=== PATIENT | female | born 1990 | race Caucasian/White ===

== ENCOUNTER 2018-02-18 10:27 | Day surgery (SDC) | payer OTHER ==
--- NOTE | 2018-02-18 08:38 | Discharge Summary ---
Short Stay Discharge Plan Activity: no restrictions Weight Bearing Status: Full Weight Bearing Diet: regular Wound: remove dressing (72hrs) Follow up with: JOSSELIN SALEH JR, MD [Staff Physician] - 7 Days MARTIN HODGES MD [Primary Care Provider] - 7 Days
--- NOTE | 2018-02-18 08:40 | Short Stay Summary ---
Short Stay Documentation Date of service: 02/18/18 - Allergies and Medications Current Medications: Allergies No Known Allergies Allergy (Verified 02/14/18 13:36) Home Medications Medication Instructions Recorded Confirmed Last Taken Type No Known Home Medications [No 02/14/18 02/14/18 Unknown History Reported Home Medications] - Brief post op/procedure progress note Date of procedure: 02/18/18 Pre-op diagnosis: Macromastia Post-op diagnosis: same Procedure: Kristofer. Breast Reduction Anesthesia: GETA Surgeon: JOSSELIN SALEH JR Estimated blood loss: 50-100ml Specimen disposition: to lab Condition: stable - Disposition Condition at discharge: Good Disposition: DC-01 TO HOME OR SELFCARE Short Stay Discharge Plan Follow up with: JOSSELIN SALEH JR, MD [Staff Physician] - 7 Days MARTIN HODGES MD [Primary Care Provider] - 7 Days
[2018-02-18] MEDS ORDERED: ANCEF/STERILE WATER 2 GM/20 ML IV NR (11:00)
[2018-02-18 11:12] LABS: Basophils # (Auto) 0.1 K/mm3 (0.0-0.1); Basophils % (Auto) 1.1 % (0.0-1.8); Eosinophils # (Auto) 0.2 K/mm3 (0.0-0.4); Eosinophils % (Auto) 2.2 % (0.0-4.3); Hematocrit 38.6 % (30.3-42.9); Hemoglobin 12.3 gm/dl (10.1-14.3); Lymphocytes % (Auto) 34.7 % (13.4-35.0); Mean Corpuscular HGB Conc 32 % (30-34); Mean Corpuscular Hemoglobin 25 pg (28-32); Mean Corpuscular Volume 79 fl (79-97); Monocytes # (Auto) 0.5 K/mm3 (0.0-0.8); Monocytes % (Auto) 5.8 % (0.0-7.3); Platelet Count 306 K/mm3 (140-440); Red Blood Count 4.88 M/mm3 (3.65-5.03)
[2018-02-18] MEDS ORDERED: ZOFRAN IV PRN (11:42)
[2018-02-18] MEDS ORDERED: DEMEROL IV PRN (11:42)
--- NOTE | 2018-02-18 11:44 | Anesthesia Consultation ---
Anesthesia Consult and Med Hx - Airway Anesthetic Teeth Evaluation: Good ROM Head & Neck: Adequate Mental/Hyoid Distance: Adequate Mallampati Class: Class II Intubation Access Assessment: Probably Good - Pulmonary Exam CTA: Yes - Cardiac Exam Cardiac Exam: RRR - Pre-Operative Health Status ASA Pre-Surgery Classification: ASA2 Proposed Anesthetic Plan: General - Pulmonary Hx Asthma: Yes (RESCUE INHALER) - Central Nervous System Hx Back Pain: Yes Hx Psychiatric Problems: No - Other Systems Hx Alcohol Use: No Hx Substance Use: No Hx Cancer: No
--- NOTE | 2018-02-18 11:44 | Anesthesia Day of Surgery ---
Anesthesia Day of Surgery - Day of Surgery Patient Examined: Yes Patient H&P Reviewed: Yes Patient is NPO: Yes
[2018-02-18] MEDS ORDERED: LACTATED RINGERS 1,000 ML IV SCH ×3 (12:00)
[2018-02-18] MEDS ORDERED: VERSED IV NR ×2 (12:00)
[2018-02-18] MEDS ORDERED: XYLOCAINE MPF 2% ONE (12:24)
[2018-02-18] MEDS ORDERED: DIPRIVAN 10 MG/ML IV ONE (12:24)
[2018-02-18] MEDS ORDERED: NACL 0.9% IR ONE (12:29)
[2018-02-18] MEDS ORDERED: ZOFRAN ONE (12:46)
[2018-02-18] MEDS ORDERED: SUBLIMAZE ONE (12:55)
[2018-02-18] MEDS ORDERED: DECADRON ONE (12:55)
[2018-02-18] MEDS ORDERED: DILAUDID ONE ×2 (13:06→13:50)
[2018-02-18] MEDS ORDERED: NACL 0.9% 1000 ML 1,000 ML ONE (14:15)
[2018-02-18] MEDS ORDERED: TORADOL ONE (15:02)
[2018-02-18] MEDS ORDERED: TORADOL IV ONE (15:02)
[2018-02-18] MEDS: DILAUDID IV PRN ×2 (15:05→15:20)
--- NOTE | 2018-02-18 17:39 | Operative Report ---
PREOPERATIVE DIAGNOSIS: Macromastia. POSTOPERATIVE DIAGNOSIS: Macromastia. PROCEDURE: Bilateral reduction mammoplasty with nipple areolar complex amputation. SURGEON: Edinson Parisi M.D. CISTERN ROOM WORKING SUPERVISOR: Dario Block CSA FINDINGS: Right breast 1880 grams ,left breast 1640 grams. DESCRIPTION OF PROCEDURE: The patient was brought to the operating room and placed on table in supine position. Following administration of general anesthesia, bilateral breasts were prepped with Betadine solution, draped in usual sterile manner. A #10 blade scalpel was used to make a circumareolar skin incision followed by de-epithelization of inferior dermal pedicle. Modified Ceron pattern skin markings were incised with scalpel, deepened through subcutaneous fat and breast tissue using electrocautery. Skin flaps were raised in standard manner as was fashioning of an inferior central mound pedicle. Breast tissue was resected inclusive of bilateral nipple areolar complexes bilaterally due to the excessive inframammary fold to nipple distance. Hemostasis controlled using electrocautery. Closure was performed over 10 mm SAVANNAH drains using interrupted and running subcuticular 2-0 Monocryl sutures. Mastisol, Steri-Strips, and sterile dressings applied. The patient tolerated procedure well and returned to recovery room in stable condition. JOB# [id number] FTW/NTS
[2018-02-18 20:32] VITALS: BP 110/68
== END 2018-02-18 19:15 | disposition home or self-care (01) ==
LOC: OR 10:27
PROVIDERS: ATTEND Plastic Surgery
DX: N62 Hypertrophy of breast (principal); J45.909 Unspecified asthma, uncomplicated
CPT/HCPCS: 19318; 36415; 81025; 85025; 88305; J0690; J1100; J1170; J1885; J2250; J2405; J2704; J3010; J7030; J7120

== ENCOUNTER 2018-02-21 17:45 | Emergency (ER) | payer OTHER ==
[2018-02-21] MEDS ORDERED: PERCOCET 5/325 PO ONE (19:07)
[2018-02-21 19:29] LABS: Basophils # (Auto) 0.1 K/mm3 (0.0-0.1); Basophils % (Auto) 1.1 % (0.0-1.8); Eosinophils # (Auto) 0.2 K/mm3 (0.0-0.4); Eosinophils % (Auto) 1.9 % (0.0-4.3); Hematocrit 34.6 % (30.3-42.9); Hemoglobin 11.1 gm/dl (10.1-14.3); Lymphocytes # (Auto) 4.4 K/mm3 (1.2-5.4); Lymphocytes % (Auto) 36.8 % (13.4-35.0); Mean Corpuscular HGB Conc 32 % (30-34); Mean Corpuscular Hemoglobin 26 pg (28-32); Mean Corpuscular Volume 79 fl (79-97); Monocytes # (Auto) 0.9 K/mm3 (0.0-0.8); Monocytes % (Auto) 7.6 % (0.0-7.3); Platelet Count 343 K/mm3 (140-440); Red Blood Count 4.36 M/mm3 (3.65-5.03); Red Cell Distribution Width 14.8 % (13.2-15.2)
[2018-02-21 19:38] LABS: BUN/Creatinine Ratio 11; Blood Urea Nitrogen 9 mg/dL (7-17); Calcium 8.6 mg/dL (8.4-10.2); Hemolysis Index 7
[2018-02-21 20:50] VITALS: BP 122/70
--- NOTE | 2018-02-21 21:30 | Emergency Department Report ---
- General Chief Complaint: Wound/Laceration Stated Complaint: LEFT SWELLING PAIN POST BREAST REDUCTION Time Seen by Provider: 02/21/18 20:46 Source: patient Mode of arrival: Ambulatory Limitations: No Limitations - History of Present Illness Initial Comments: pt. is here complaining of pain pulling on both breast and chest wall worse on the left. she also noticed some discharge from the incision site. she had a breast reduction done on sunday - 4 days ago. -: Gradual Location: chest Place: home Associated Symptoms: pain - Related Data Home Medications Medication Instructions Recorded Confirmed Last Taken No Known Home Medications [No 02/14/18 02/14/18 Unknown Reported Home Medications] Allergies Allergy/AdvReac Type Severity Reaction Status Date / Time No Known Allergies Allergy Verified 02/14/18 13:36 ED Review of Systems ROS: Stated complaint: LEFT SWELLING PAIN POST BREAST REDUCTION Other details as noted in HPI Comment: All other systems reviewed and negative ED Past Medical Hx - Past Medical History Hx Asthma: Yes (RESCUE INHALER) Hx HIV: No - Surgical History Additional Surgical History: breast reduction 02/18/2018 - Social History Smoking Status: Never Smoker Substance Use Type: None - Medications Home Medications: Home Medications Medication Instructions Recorded Confirmed Last Taken Type No Known Home Medications [No 02/14/18 02/14/18 Unknown History Reported Home Medications] ED Physical Exam - General Limitations: No Limitations General appearance: alert, in no apparent distress - Head Head exam: Present: atraumatic, normocephalic - Eye Eye exam: Present: normal appearance. Absent: PERRL - ENT ENT exam: Present: normal exam, mucous membranes moist - Neck Neck exam: Present: normal inspection - Respiratory Respiratory exam: Present: normal lung sounds bilaterally, other (sterile strips covering incision site on the inferior area of the breast. no discharge from the steri-strips). Absent: respiratory distress - Cardiovascular Cardiovascular Exam: Present: regular rate, normal rhythm. Absent: systolic murmur, diastolic murmur, rubs, gallop - GI/Abdominal GI/Abdominal exam: Present: soft, normal bowel sounds. Absent: tenderness - Extremities Exam Extremities exam: Present: normal inspection, full ROM - Back Exam Back exam: Present: normal inspection, full ROM - Neurological Exam Neurological exam: Present: alert, oriented X3 - Psychiatric Psychiatric exam: Present: normal affect, normal mood - Skin Skin exam: Present: warm, dry, intact, normal color. Absent: rash ED Course Vital Signs 02/21/18 02/21/18 02/21/18 17:54 19:12 20:49 Temperature 98.5 F 98.1 F Pulse Rate 80 64 Respiratory 18 18 18 Rate Blood Pressure 123/78 Blood Pressure 122/70 [Left] O2 Sat by Pulse 96 97 Oximetry 02/21/18 20:50 Temperature Pulse Rate Respiratory 18 Rate Blood Pressure Blood Pressure [Left] O2 Sat by Pulse Oximetry ED Medical Decision Making - Lab Data Result diagrams: 02/21/18 19:11 02/21/18 19:11 - Radiology Data Radiology results: report reviewed Critical care attestation.: If time is entered above; I have spent that time in minutes in the direct care of this critically ill patient, excluding procedure time. ED Disposition Clinical Impression: Post-op pain Disposition: DC-01 TO HOME OR SELFCARE Is pt being admited?: No Does the pt Need Aspirin: No Condition: Stable Instructions: Chest Pain (ED) Additional Instructions: follow up with Dr Torres who did the surgery tomorrow Referrals: MARTIN HODGES MD [Primary Care Provider] - 3-5 Days Time of Disposition: 22:14 Print Language: SPANISH
--- NOTE | 2018-02-21 21:50 | Cat Scan Report ---
FINAL REPORT PROCEDURE: CT ANGIO CHEST TECHNIQUE: Computerized tomographic angiography of the chest was performed after the IV injection of iodinated nonionic contrast including image processing. The image data was postprocessed using 2-dimensional multiplanar reformatted (MPR) and 3-dimensional (MIP and/or volume rendered) techniques. HISTORY: eval for PE COMPARISON: No prior studies are available for comparison. FINDINGS: This study is limited due to streak artifacts from the arms and suboptimal opacification of pulmonary arterial tree. There are no obvious pulmonary arterial filling defects to suggest pulmonary embolism. Aorta is of normal caliber. Hilar structures are within normal limits. There is no lymphadenopathy. Visualized thyroid demonstrates normal density. Postoperative changes are noted involving bilateral breasts with surgical drains in place. Bilateral lungs and pleural spaces are clear. Visualized upper abdominal structures are unremarkable. IMPRESSION: Limited study due to streak artifacts from the arms and suboptimal opacification of pulmonary arterial tree. No obvious pulmonary embolism. No acute pulmonary process.
== END 2018-02-21 22:29 | disposition home or self-care (01) ==
LOC: ED 17:45
DX: N64.4 Mastodynia (principal); J45.909 Unspecified asthma, uncomplicated
CPT/HCPCS: 36415; 71275; 80048; 84702; 85025; 99284; Q9967

== ENCOUNTER 2018-05-27 06:34 | Day surgery (SDC) | payer OTHER ==
[2018-05-27] MEDS ORDERED: DIPRIVAN 10 MG/ML IV ONE (07:25)
[2018-05-27] MEDS ORDERED: SUBLIMAZE ONE (07:25)
[2018-05-27] MEDS ORDERED: ZOFRAN IV PRN (07:46)
[2018-05-27] MEDS ORDERED: TORADOL IV PRN (07:46)
[2018-05-27] MEDS ORDERED: DEMEROL IV PRN (07:46)
[2018-05-27] MEDS ORDERED: DILAUDID IV PRN (07:46)
[2018-05-27 07:52] LABS: Hematocrit 35.2 % (30.3-42.9); Hemoglobin 11.3 gm/dl (10.1-14.3)
[2018-05-27] MEDS ORDERED: REGLAN ONE (07:59)
[2018-05-27] MEDS ORDERED: PEPCID IV ONE (07:59)
[2018-05-27] MEDS ORDERED: PEPCID IV NR (08:00)
[2018-05-27] MEDS ORDERED: VERSED IV NR (08:00)
[2018-05-27] MEDS ORDERED: REGLAN IV NR (08:00)
[2018-05-27] MEDS ORDERED: ANCEF/STERILE WATER 2 GM/20 ML 2 GM/20 ML SYRINGE IV NR (08:00)
[2018-05-27] MEDS ORDERED: LACTATED RINGERS 1,000 ML IV SCH (08:00)
--- NOTE | 2018-05-27 08:21 | Anesthesia Consultation ---
Anesthesia Consult and Med Hx Date of service: 05/27/18 - Airway Anesthetic Teeth Evaluation: Poor, Chipped ROM Head & Neck: Adequate Mental/Hyoid Distance: Adequate Mallampati Class: Class II Intubation Access Assessment: Probably Good - Pulmonary Exam CTA: Yes - Cardiac Exam Cardiac Exam: RRR - Pre-Operative Health Status ASA Pre-Surgery Classification: ASA3 Proposed Anesthetic Plan: General (Ga with LMA ok, denies issues with GERD, hx of Asthma will hold off on toradol) - Pulmonary Hx Asthma: Yes (RESCUE INHALER) - Central Nervous System Hx Back Pain: Yes Hx Psychiatric Problems: No - Other Systems Hx Alcohol Use: No Hx Substance Use: No Hx Cancer: No
--- NOTE | 2018-05-27 08:21 | Anesthesia Day of Surgery ---
Anesthesia Day of Surgery - Day of Surgery Patient Examined: Yes Patient H&P Reviewed: Yes Patient is NPO: Yes
[2018-05-27] MEDS ORDERED: ROBINUL ONE (09:23)
[2018-05-27] MEDS ORDERED: ZOFRAN ONE (09:23)
[2018-05-27] MEDS ORDERED: NEO SYNEPHRINE/NS Syringe(OR USE) IV ONE (09:23)
[2018-05-27] MEDS ORDERED: DECADRON ONE (09:23)
[2018-05-27] MEDS ORDERED: XYLOCAINE MPF 2% ONE (09:23)
[2018-05-27] MEDS ORDERED: NACL 0.9% IR ONE (09:32)
--- NOTE | 2018-05-27 10:40 | Operative Report ---
PREOPERATIVE DIAGNOSES: 1. Absence of bilateral nipples. 2. Acquired breast deformity. 3. Status post bilateral breast reduction with nipple areolar complex amputation. POSTOPERATIVE DIAGNOSES: 1. Absence of bilateral nipples. 2. Acquired breast deformity. 3. Status post bilateral breast reduction with nipple areolar complex amputation. SURGEON: Edinson Parisi MD EXPANSION JOINT FINISHER: Dario Block CSA. DESCRIPTION OF PROCEDURE: The patient was brought to the operating room and placed on the table in supine position. Following administration of general anesthesia, bilateral breasts were prepped with Betadine solution, draped in usual sterile manner. A #11 blade scalpel was used to incise preoperative markings, created flag-shaped flap, was folded upon itself in order to perform a cylinder, secured in place with interrupted 3-0 Monocryl sutures. Donor site was closed with interrupted 2-0 Monocryl sutures. A dermal bridge was deepithelialized upon which the nipple rested, followed by final skin closure with interrupted running subcuticular 3-0 Monocryl sutures. Mastisol, Steri-Strips, and sterile protective dressing was applied. The patient tolerated procedure well and returned to recovery room in stable condition. JOB# [id number] FTW/NTS
[2018-05-27] MEDS ORDERED: NORCO 7.5/325 PO SCH (12:20)
--- NOTE | 2018-05-27 19:32 | Post Anesthesia Evaluation ---
- Post Anesthesia Evaluation Patient Participated: Yes Airway Patent: Yes Stable Respiratory Function: Yes Nausea/Vomiting: No Temp > 96.8F: Yes Pain Manageable: Yes Adequeate Hydration: Yes Anesthesia Complications: No
[2018-05-27 20:38] VITALS: BP 114/79
== END 2018-05-27 13:14 | disposition home or self-care (01) ==
LOC: OR 06:34
PROVIDERS: ATTEND Plastic Surgery
DX: Z90.13 Acquired absence of bilateral breasts and nipples (principal); N64.89 Other specified disorders of breast; J45.909 Unspecified asthma, uncomplicated; Z79.899 Other long term (current) drug therapy; Z98.890 Other specified postprocedural states
CPT/HCPCS: 19350; 36415; 81025; 85014; 85018; J0690; J1100; J2250; J2370; J2405; J2704; J2765; J3010; J7120